=== PATIENT | female | born 1990 | race Caucasian/White ===

== ENCOUNTER 2017-07-11 10:31 | Emergency (ER) | payer MEDICAID ==
[~2017-07-11] VITALS: Ht 154.9 cm; Wt 94.5 kg
[2017-07-11 10:53] VITALS: BP 138/52
--- NOTE | 2017-07-11 11:35 | NUR ---
C/O LEFT SIDE OF NECK AND EAR PAIN X 2 DAYS---FEVER DIZZINESS . DENIES N/V/D; SKIN IS PINK/WARM/DRY; AAOX4 WITH EVEN AND STEADY GAIT; LUNGS CLEAR BL; HR EVEN AND REGULAR; PT DENIES ANY, CP, SOB, OR COUGH AT THIS TIME; PATIENT STATES PAIN OF 5/10 AT THIS TIME; VSS; ER MD MADE AWARE OF PT STATUS.
[2017-07-11 14:35] VITALS: BP 128/60
--- NOTE | 2017-07-11 14:35 | NUR ---
Patient discharged with v/s stable. Written and verbal after care instructions given and explained. Patient alert, oriented and verbalized understanding of instructions. Ambulatory with steady gait. All questions addressed prior to discharge. ID band removed. Patient advised to follow up with PMD. Rx of ZITHROMAX given. Patient educated on indication of medication including possible reaction and side effects. Opportunity to ask questions provided and answered.
== END 2017-07-11 14:35 | disposition home or self-care (01) ==
LOC: MED 10:31
DX: J06.9 Acute upper respiratory infection, unspecified (principal); Z88.0 Allergy status to penicillin
CPT/HCPCS: 99283

== ENCOUNTER 2018-08-05 22:57 | Emergency (ER) | payer MEDICAID ==
[~2018-08-05] VITALS: Ht 152.4 cm; Wt 83.9 kg
[2018-08-05 23:03] VITALS: BP 112/78
--- NOTE | 2018-08-05 23:03 | NUR ---
TO BED # 03 AMBULATORY REPORT GIVEN TO RASTA FARRAR
--- NOTE | 2018-08-05 23:03 | NUR ---
PT PRESENTS TO ED WITH VAGINAL SPOTTING, UMBILICAL PAIN X3 DAYS. PT WAS SEEN AT URGENT CARE FOR SAME PROBLEM. URGENT CARE MD INSTRUCTED PT TO REMOVE HER IUD SINCE SHE HAD A TEST COME UP POSITIVE. PT CONTINUES TO HAVE SPOTTING AND UMBILICAL CRAMPING PAIN. BLEEDING CONTROLLED. PT STATES NOT SOAKING PADS. NO FLANK PAIN. NO BURNING WITH URINATION OR OTHER URINARY CHANGES. A&OX4. VSS. POSITOINED IN BED FOR COMFROT. ACCOMPANIED BY FAMILY. ER MD AWARE. CONTINUE TO MONITOR.
--- NOTE | 2018-08-05 23:10 | NUR ---
DR LAU AT BEDSIDE FOR EVALUATION.
[2018-08-05 23:38] LABS: APPEARANCE,URINE SL CLOUDY (CLEAR); BILIRUBIN,URINE NEGATIVE (NEGATIVE); BLOOD, URINE 2+ (NEGATIVE); COLOR,URINE YELLOW (YELLOW); LEUKOCYTE ESTERASE ,URINE NEGATIVE (NEGATIVE); NITRITE, URINE NEGATIVE (NEGATIVE); PH,URINE 5.5 (5.0-9.0); UGLUCOSE NEGATIVE (NEGATIVE)
[2018-08-05 23:38] LABS: BASOPHILS # (AUTO) 0.1 K/uL (0.00-0.22); BASOPHILS % (AUTO) 0.9 % (0.0-2.0); EOSINOPHILS # (AUTO) 0.2 K/uL (0-0.4); EOSINOPHILS % (AUTO) 2.2 % (0.0-4.0); HEMATOCRIT 37.1 % (36-48); HEMOGLOBIN 12.3 g/dL (12.0-16.0); LYMPHOCYTES # (AUTO) 2.8 K/uL (2.5-16.5); LYMPHOCYTES % (AUTO) 39.8 % (20.5-51.1); MEAN CORPUSCULAR HEMOGLOBIN 27 pg (27-31); MEAN CORPUSCULAR HGB CONC 33 g/dL (33-37); MEAN CORPUSCULAR VOLUME 82.5 fL (80-94); MONOCYTES # (AUTO) 0.4 K/uL (0.8-1.0); MONOCYTES % (AUTO) 5.4 % (1.7-9.3); NEUTROPHILS # (AUTO) 3.7 K/uL (1.8-7.7); NEUTROPHILS % (AUTO) 51.7 % (42.2-75.2); PLATELET COUNT (AUTO) 228 K/uL (140-450); RED CELL DISTRIBUTION WIDTH 13.1 % (11.6-13.7); WHITE BLOOD COUNT (AUTO) 7.1 K/uL (4.8-10.8)
[2018-08-06 00:22] LABS: RBC,URINE 0-5 /HPF (0-5); WBC,URINE 0-5 /HPF (0-5)
[2018-08-06 00:35] VITALS: BP 110/74
--- NOTE | 2018-08-06 00:35 | NUR ---
Patient discharged with v/s stable. Written and verbal after care instructions given and explained. Patient verbalized understanding. Ambulatory with steady gait. All questions addressed prior to discharge. Advised to follow up with PMD.
== END 2018-08-06 00:35 | disposition home or self-care (01) ==
LOC: MED 22:57
DX: O03.9 Complete or unspecified spontaneous abortion without complication (principal); Z3A.01 Less than 8 weeks gestation of pregnancy; Z88.0 Allergy status to penicillin
CPT/HCPCS: 36415; 81001; 81025; 84702; 85025; 86900; 86901; 99283

== ENCOUNTER 2018-11-04 10:01 | Emergency (ER) | payer MEDICAID ==
[~2018-11-04] VITALS: Ht 152.4 cm; Wt 97.7 kg
[2018-11-04 10:03] VITALS: BP 125/76
--- NOTE | 2018-11-04 10:12 | NUR ---
Pt. ambulated to bed 4
[2018-11-04] MEDS ORDERED: IBUPROFEN 800 MG TAB PO ONE (10:30)
[2018-11-04] MEDS ORDERED: DEXAMETHASONE 10 MG/ML VIAL IM ONE (10:30)
[2018-11-04] MEDS ORDERED: CLINDAMYCIN 600 MG/4 ML VIAL IM ONE (10:30)
--- NOTE | 2018-11-04 10:35 | NUR ---
pt presents to ED with c/o fever and sore throat. afebrile at this time. pt reports body-aches, nausea and decreased appetite. denies previous medical hx. ERMD to evaluate pt.
[2018-11-04 11:13] VITALS: BP 112/70
--- NOTE | 2018-11-04 11:14 | NUR ---
Patient discharged with v/s stable. Written and verbal after care instructions given and explained. Patient alert, oriented and verbalized understanding of instructions. Ambulatory with steady gait. All questions addressed prior to discharge. ID band removed. Patient advised to follow up with PMD. Rx of clindamycin, motrin given. Patient educated on indication of medication including possible reaction and side effects. Opportunity to ask questions provided and answered.
== END 2018-11-04 11:14 | disposition home or self-care (01) ==
LOC: MED 10:01
DX: J03.90 Acute tonsillitis, unspecified (principal); Z88.0 Allergy status to penicillin
CPT/HCPCS: 81002; 81025; 96372; 99283; J1100; J3490

== ENCOUNTER 2019-01-17 12:33 | Emergency (ER) | payer MEDICAID ==
[~2019-01-17] VITALS: Ht 152.4 cm; Wt 99.3 kg
[2019-01-17 12:43] VITALS: BP 117/62
--- NOTE | 2019-01-17 12:57 | NUR ---
Patient ambulated to bed 2
--- NOTE | 2019-01-17 13:16 | NUR ---
C/O BILAT EYE PAIN/ITCHINESS & TEARING, ACCOMPANIED BY RASH TO FLEXURAL SURFACE BL ELBOWS AND UNDER BREASTS AND NECK. PT DENIES USE OF NEW LOTIONS/SOAPS/MEDS ETC. PT TOOK 2 BENADRYL PILLS THIS MORNING 7AM. PT DENIES SOB. NO FEVER. HX: NONE RX: NONE
--- NOTE | 2019-01-17 14:11 | NUR ---
KIZZY BURCIAGA EVALUATING PT AT BEDSIDE.
[2019-01-17] MEDS ORDERED: DEXAMETHASONE 10 MG/ML VIAL IM ONE (14:25)
[2019-01-17 14:51] VITALS: BP 124/66
--- NOTE | 2019-01-17 14:52 | NUR ---
Patient discharged with v/s stable. Written and verbal after care instructions given and explained. Patient alert, oriented and verbalized understanding of instructions. Ambulatory with steady gait. All questions addressed prior to discharge. ID band removed. Patient advised to follow up with PMD. Rx of ATARAX, PATANOL, LORATADINE, PREDNISONE, HYDROCORTISONE given. Patient educated on indication of medication including possible reaction and side effects. Opportunity to ask questions provided and answered.
== END 2019-01-17 14:52 | disposition home or self-care (01) ==
LOC: MED 12:33
DX: L25.9 Unspecified contact dermatitis, unspecified cause (principal); H10.13 Acute atopic conjunctivitis, bilateral; J45.909 Unspecified asthma, uncomplicated; Z88.0 Allergy status to penicillin
CPT/HCPCS: 81002; 81025; 96372; 99283; J1100

== ENCOUNTER 2020-11-16 22:04 | Emergency (ER) | payer MEDICAID ==
[~2020-11-16] VITALS: Ht 152.4 cm; Wt 98.4 kg
[2020-11-16 22:20] VITALS: BP 131/69
--- NOTE | 2020-11-16 22:23 | NUR ---
TO LOBBY A/W BED AMBULATORY
--- NOTE | 2020-11-16 23:50 | NUR ---
PT AMBULATED TO BED 1
--- NOTE | 2020-11-17 | NUR ---
PT. IS A 30 Y/O FEMALE THAT CAME INTO ED WITH C/O OF SOB. PT. STATES "IT HURTS WHEN I INHALE ONLY." PT. STATES THAT SHE HAS CRAMPS ON THE RIGHT SIDE AND UNDER HER STERNUM WHEN ASKED OF DESCRIPTION OF PAIN. PT. RATES PAIN AT 6/10 ON THE PAIN SCALE AT THIS TIME. PT. STATES THAT IT STARTED LAST NIGHT AND "IT COMES AND GOES." SKIN IS PINK/WARM/DRY; AAOX4 WITH EVEN AND STEADY GAIT; HR EVEN AND REGULAR; PT DENIES ANY FEVER, CP, SOB, OR COUGH AT THIS TIME; VSS; PATIENT POSITIONED FOR COMFORT; HOB ELEVATED; BEDRAILS UP X2; BED DOWN. ER MD MADE AWARE OF PT STATUS. PMH: ASTHMA ALLERGIES: PENICILLINS
--- NOTE | 2020-11-17 00:16 | NUR ---
CT AT BEDSIDE
[2020-11-17] MEDS ORDERED: DICYCLOMINE HCL LIQUID 20 MG, ALUMINUM HYD/MAG/SIMETHICONE 30 ML, LIDOCAINE VISCOUS 2% ... PO ONE ×3 (00:25)
[2020-11-17 00:44] LABS: BASOPHILS % (AUTO) 0.2 % (0.0-2.0); EOSINOPHILS # (AUTO) 0.1 K/uL (0-0.4); EOSINOPHILS % (AUTO) 1.8 % (0.0-4.0); HEMATOCRIT 34.8 % (36-48); HEMOGLOBIN 11.5 g/dL (12.0-16.0); LYMPHOCYTES # (AUTO) 2.7 K/uL (2.5-16.5); LYMPHOCYTES % (AUTO) 31.9 % (20.5-51.1); MEAN CORPUSCULAR HEMOGLOBIN 28 pg (27-31); MEAN CORPUSCULAR HGB CONC 33 g/dL (33-37); MEAN CORPUSCULAR VOLUME 83.7 fL (80-94); MONOCYTES # (AUTO) 0.5 K/uL (0.8-1.0); MONOCYTES % (AUTO) 5.8 % (1.7-9.3); NEUTROPHILS # (AUTO) 5.1 K/uL (1.8-7.7); NEUTROPHILS % (AUTO) 60.3 % (42.2-75.2); PLATELET COUNT (AUTO) 200 K/uL (140-450); RED BLOOD CELL COUNT(AUTO) 4.15 MIL/uL (4.20-5.40); RED CELL DISTRIBUTION WIDTH 12.9 % (11.6-13.7); WHITE BLOOD COUNT (AUTO) 8.4 K/uL (4.8-10.8)
[2020-11-17 00:45] LABS: APPEARANCE,URINE SL CLOUDY (CLEAR); BILIRUBIN,URINE NEGATIVE (NEGATIVE); BLOOD, URINE NEGATIVE (NEGATIVE); COLOR,URINE YELLOW (YELLOW); LEUKOCYTE ESTERASE ,URINE NEGATIVE (NEGATIVE); NITRITE, URINE NEGATIVE (NEGATIVE); UGLUCOSE NEGATIVE (NEGATIVE)
[2020-11-17] MEDS ORDERED: DICYCLOMINE HCL LIQUID 10 MG/5 ML UDC ONE ×2 (00:46→00:48)
[2020-11-17] MEDS ORDERED: ALUMINUM HYD/MAG/SIMETHICONE 30 ML UDC ONE ×2 (00:46→00:48)
[2020-11-17 01:07] LABS: ALBUMIN 3.4 g/dL (3.4-5.0); ANION GAP 13.8 (8-16); CARBON DIOXIDE 22.6 mmol/L (21-32); CREATININE 0.6 mg/dL (0.6-1.3); POTASSIUM 3.4 mmol/L (3.5-5.1); TOTAL BILIRUBIN 0.1 mg/dL (0.0-1.0)
--- NOTE | 2020-11-17 01:23 | NUR ---
ULTRASOUND AT BEDSIDE
--- NOTE | 2020-11-17 02:50 | NUR ---
PT. LAYING IN BED WITH EYES CLOSED, VOICES NO COMPLAINTS AT THIS TIME.
[2020-11-17] MEDS ORDERED: PYRI-218 PO (03:52)
[2020-11-17 04:05] VITALS: BP 103/50
--- NOTE | 2020-11-17 04:05 | NUR ---
Patient discharged with v/s stable. Written and verbal after care instructions given and explained. Patient alert, oriented and verbalized understanding of instructions. Ambulatory with steady gait. All questions addressed prior to discharge. ID band removed. Patient advised to follow up with PMD. Rx of VITAMIN B-6 given. Patient educated on indication of medication including possible reaction and side effects. Opportunity to ask questions provided and answered.
== END 2020-11-17 04:05 | disposition home or self-care (01) ==
LOC: MED 22:04
DX: O26.892 Other specified pregnancy related conditions, second trimester (principal); O21.8 Other vomiting complicating pregnancy; R10.13 Epigastric pain; J45.909 Unspecified asthma, uncomplicated; Z3A.15 15 weeks gestation of pregnancy; Z88.0 Allergy status to penicillin; Z79.899 Other long term (current) drug therapy
CPT/HCPCS: 36415; 71045; 76705; 80053; 81003; 81025; 83690; 85025; 93005; 99285